=== PATIENT | male | born 1985 | race Caucasian/White ===

== ENCOUNTER 2016-12-12 08:08 | Day surgery (SDC) | payer BC ==
[~2016-12-12] VITALS: Ht 177.8 cm; Wt 105.2 kg
[2016-12-12] MEDS ORDERED: MUPIROCIN 2% TOPICAL OINTMENT 22 GM TP ONE (10:02)
[2016-12-12] MEDS ORDERED: METOCLOPRAMIDE HCL 10 MG/2 ML VIAL IVP ONE (10:02)
[2016-12-12] MEDS ORDERED: WATER FOR IRRIGATION,STERILE 1,000 ML IRRIG.SOLN IR ONE (10:02)
[2016-12-12] MEDS ORDERED: NS IRRIG SOLN 1000 ML IR ONE (10:02)
[2016-12-12] MEDS ORDERED: GLYCOPYRROLATE 0.2 MG/ML VIAL IJ ONE (10:02)
[2016-12-12] MEDS ORDERED: PROPOFOL 200MG/ 20ML VIAL (DIPRIVAN) IV ONE (10:02)
[2016-12-12] MEDS ORDERED: SEVOFLURANE 15 MIN GAS INH ONE (10:02)
[2016-12-12] MEDS ORDERED: SUCCINYLCHOLINE CHLORIDE 20 MG/ML(QUELICIN) IVP ONE (10:02)
[2016-12-12] MEDS ORDERED: MIDAZOLAM HCL 5 MG/5 ML VIAL IVP ONE (10:02)
[2016-12-12] MEDS ORDERED: LIDOCAINE/EPI 1% 1:100000 20 ML VIAL INJ ONE (10:02)
[2016-12-12] MEDS ORDERED: EPINEPHrine 1 MG/ML AMP IVP ONE (10:02)
[2016-12-12] MEDS ORDERED: DEXAMETHASONE SOD PHOSPHATE 4 MG/ML VIAL IVP ONE (10:02)
[2016-12-12] MEDS ORDERED: MORPHINE SULFATE 10 MG/ML VIAL IVP ONE (10:02)
[2016-12-12] MEDS ORDERED: BACITRACIN ZINC 15 GM TOPICAL OINTMENT TP ONE (10:02)
[2016-12-12] MEDS ORDERED: fentaNYL CITRATE/PF 100 MCG/2 ML AMP IVP ONE (10:02)
[2016-12-12] MEDS ORDERED: OXYMETAZOLINE HCL 0.05% NASAL SPRAY NS ONE (10:02)
[2016-12-12] MEDS ORDERED: NS 100 ML BAG IV ONE (10:02)
[2016-12-12] MEDS ORDERED: LR 1,000 ML IV.SOLN IV ONE (10:02)
[2016-12-12] MEDS ORDERED: LR 1,000 ML IV ONE (10:37)
[2016-12-12] MEDS ORDERED: NALOXONE HCL 0.4 MG/ML AMP (NARCAN) IVP PRN (10:45)
[2016-12-12] MEDS ORDERED: ePHEDrine sulfate 50 MG/ML VIAL IVP PRN (10:45)
[2016-12-12] MEDS ORDERED: NALBUPHINE HCL 10 MG/ML AMP IVP PRN (10:45)
[2016-12-12] MEDS ORDERED: DIPHENHYDRAMINE INJ 50 MG/ML VIAL IVP PRN (10:45)
[2016-12-12] MEDS ORDERED: ONDANSETRON HCL 4 MG/2 ML VIAL IVP PRN ×2 (10:45)
[2016-12-12] MEDS ORDERED: fentaNYL CITRATE/PF 100 MCG/2 ML AMP IVP PRN (10:45)
[2016-12-12 15:13] VITALS: BP_SYST 123
[2016-12-12] MEDS ORDERED: HYDROcodone/ACETAMIN 5-325 MG TAB (NORCO/ VICODIN) PO PRN (15:30)
[2016-12-12] MEDS ORDERED: HYDROcodone/ACETAMIN 5-325 MG TAB (NORCO/ VICODIN) ONE (15:32)
== END 2016-12-12 17:12 | disposition home or self-care (01) ==
LOC: SDS 08:08 → SMU 08:12 → SDS 17:12
PROVIDERS: ATTEND Otolaryngology
DX: J34.2 Deviated nasal septum (principal); J32.9 Chronic sinusitis, unspecified; J34.89 Other specified disorders of nose and nasal sinuses
CPT/HCPCS: 30140; 30520; 30999; 31255; 31256; 88305; 88311; J0171; J0330; J1100; J2250; J2270; J2704; J2765; J3010; J3490; J7120